=== PATIENT | female | born 1980 | race Caucasian/White ===

== ENCOUNTER 2018-12-02 13:23 | Emergency (ER) | payer BC ==
--- NOTE | 2018-12-02 14:17 | ULT ---
Venous duplex sonogram right lower extremity HISTORY: Right leg pain and edema. FINDINGS: The right common femoral vein and greater saphenous junction were evaluated along with the femoral, deep femoral, popliteal, and posterior tibial veins. There is good color and spectral Doppler flow, compression, and augmentation. IMPRESSION: No sonographic evidence of DVT within the right lower extremity.
== END 2018-12-02 14:44 | disposition home or self-care (01) ==
LOC: SCSER 13:23
DX: M25.571 Pain in right ankle and joints of right foot (principal)